=== PATIENT | male | born 1950 | race Caucasian/White ===

== ENCOUNTER 2017-03-02 04:46 | Emergency (ER) | payer OTHER ==
[2017-03-02 04:54] VITALS: RESP 16; TEMP 97.7
[2017-03-02] MEDS ORDERED: CEPHALEXIN 500 MG CAP PO ONE (05:59)
[2017-03-02] MEDS ORDERED: SULFAMETHOX/TMP 800/160 MG 1 TAB PO ONE (05:59)
--- NOTE | 2017-03-02 06:00 | EDPHY ---
H & P Stated Complaint: R hand redness Time Seen by Provider: 03/02/17 05:39 HPI/ROS: HPI The patient presents with 2 days of right hand redness which started slowly and getting progressively worse. It is associated with an achy pain and mild swelling. His hand feels warm. He did not have any cut or injury to the hand. He has no prior history of similar. He does not have any fevers or chills, nausea or vomiting.. REVIEW OF SYSTEMS Constitutional: No fever, no chills. Eyes: No discharge. ENT: No sore throat. Cardiovascular: No chest pain, no palpitations. Respiratory: No cough, no shortness of breath. Gastrointestinal: No abdominal pain, no vomiting. Genitourinary: No hematuria. Musculoskeletal: No back pain. Skin: See HPI Neurological: No headache. PMHx: Healthy Soc Hx: No intravenous drug use PHYSICAL General Appearance: Alert, no distress Eyes: Pupils equal and round no pallor or injection ENT, Mouth: Mucous membranes moist Respiratory: There are no retractions, lungs are clear to auscultation Cardiovascular: Regular rate and rhythm Gastrointestinal: Abdomen is soft and non-tender, no masses, bowel sounds normal Neurological: A&O, moves all extremities Skin: Right hand, dorsal aspect from MCPs to wrist is erythematous, warm, slightly tender, there is no lymphangitis or streaking, he has full range of motion of the wrist without any difficulty or effusion present Musculoskeletal: Neck is supple non tender Extremities: symmetrical, full range of motion Psychiatric: Patient is oriented X 3, there is no agitation Source: Patient - Medical/Surgical History Hx Asthma: No Hx Chronic Respiratory Disease: No Hx Diabetes: No Hx Cardiac Disease: Yes Hx Renal Disease: No Hx Cirrhosis: No Hx Alcoholism: No Hx HIV/AIDS: No Hx Splenectomy or Spleen Trauma: No Other PMH: PPM, - Social History Smoking Status: Never smoked Constitutional: Initial Vital Signs Temperature (C) 36.5 C 03/02/17 04:51 Heart Rate 80 03/02/17 04:51 Respiratory Rate 16 03/02/17 04:51 Blood Pressure 129/76 H 03/02/17 04:51 O2 Sat (%) 98 03/02/17 04:51 O2 Delivery Mode Room Air Allergies/Adverse Reactions: amoxicillin [Amoxicillin] Allergy (Intermediate, Verified 03/02/17 04:50) Rash Home Medications: Medication Instructions Recorded Cephalexin [Keflex (*)] 500 mg PO Q6H #28 cap 03/02/17 Sulfamethox/Tmp 800/160 mg 1 tab PO BID #14 tab 03/02/17 [Bactrim Ds] Medical Decision Making Differential Diagnosis: This is a 66-year-old healthy male who presents with 2 days of right hand redness. Differential diagnosis includes cellulitis, less likely abscess, less likely septic joint given full range of motion. Given he has no systemic signs of illness or comorbidities, I will treat him with p. o. antibiotics, Bactrim and Keflex. I have described return precautions to him including any worsening redness or swelling or fevers or chills. - Data Points Medications Given: Discontinued Medications Cephalexin HCl (Keflex) 500 mg PO EDNOW ONE PRN Reason: Protocol Stop: 03/02/17 06:00 Last Admin: 03/02/17 06:08 Dose: 500 mg Trimethoprim/Sulfamethoxazole (Bactrim Ds) 1 ea PO EDNOW ONE PRN Reason: Protocol Stop: 03/02/17 06:00 Last Admin: 03/02/17 06:08 Dose: 1 ea Departure - Departure Disposition: Home, Routine, Self-Care Clinical Impression: Cellulitis Qualifiers: Site of cellulitis: extremity Site of cellulitis of extremity: upper extremity Laterality: right Qualified Code(s): L03.113 - Cellulitis of right upper limb Condition: Good Instructions: Cellulitis (ED) Additional Instructions: Please return if the redness and swelling gets any worse. Please take the antibiotics as prescribed. Referrals: DOUG ROCHA [Primary Care Provider] - As per Instructions Prescriptions: Cephalexin [Keflex (*)] 500 mg PO Q6H #28 cap Sulfamethox/Tmp 800/160 mg [Bactrim Ds] 1 tab PO BID #14 tab
[2017-03-02 06:08] VITALS: BP 124/75; PULSE 74; O2SAT 95
== END 2017-03-02 06:09 | disposition home or self-care (01) ==
DX: L03.113 Cellulitis of right upper limb (principal)